=== PATIENT | female | born 1930 | race Caucasian/White ===

== ENCOUNTER 2018-05-18 20:36 | Inpatient (IN) ==
[2018-05-18] MEDS ORDERED: *HR* HYDROcodone/Acet 5/325 mg TABLET PO ONE (20:52)
--- NOTE | 2018-05-18 20:57 | Emergency Department Note ---
Addendum entered and electronically signed by Daniel Coy DO 05/19/18 07:58: . Original Note: Disposition Clinical Impression: Intractable low back pain, Decreased ambulation status Compression fracture of L3 lumbar vertebra Qualifiers: Encounter type: initial encounter Fracture type: closed Qualified Code(s): S32.030A - Wedge compression fracture of third lumbar vertebra, initial encounter for closed fracture Disposition: Admitted As Inpatient Condition: Fair Forms: ED Satisfaction Letter Time of Disposition: 21:45 Back Pain HPI - General Chief Complaint: ED Back Pain/Injury Stated Complaint: Low Back Pain Time Seen by Provider: 05/18/18 20:49 Source: patient, EMS Mode of arrival: EMS Limitations: no limitations Nursing Notes Reviewed: Yes Vital Signs Reviewed: Yes - History of Present Illness HPI Narrative: Patient is an 79-year-old female with past medical history of COPD, chronic low back pain, chronic right-sided sciatica, recent worsening of low back pain and acute lumbar compression fracture found on MRI outpatient today. She states that she has chronic low back pain, chronic intermittent right lower extremity sciatica, osteoporosis. Chronic back pain has been for the past several months. However, about one week ago, she was lifting a heavy pot in place in the stove and felt pain in her lower back. Since then, she has had worsening of her chronic low back pain symptoms and worsening of her intermittent sciatica. Denies any new numbness, tingling, weakness, loss of bowel or bladder control. She presents today via EMS due to worsening low back pain. She states that she was seen today in the ER, was given morphine for pain control and then sent home with tramadol. She states that she requested that she not be sent home with any narcotic medication which is why she was sent home with tramadol. She is been taking that every 12 hours at home and states that is not helping. She also had an outpatient MRI today that showed an acute versus subacute L3 compression fracture with 10% height loss. She states that she lives at home by herself but is still able to walk and ambulate with a walker. Her son lives nearby and has been checking on her. She states that she is still been able to perform activities of daily living. EMS did report the patient was satting in the upper 80s on presentation. She has a history of COPD. She states that she is supposed to be wearing 3 L nasal cannula oxygen at home but was not wearing it upon EMS arrival. Patient is placed on 2 L and her oxygen increased to 95%. She denies any increased shortness breath, cough, sputum production from her baseline with COPD. - Related Data Home Medications Medication Instructions Recorded Confirmed Albuterol Sulfate [Albuterol 2 puff IH Q6H PRN 07/04/16 07/04/16 Inhaler] Furosemide [Lasix] 20 mg PO DAILY 07/04/16 07/04/16 Multivit-Min/Iron/Folic/Lutein 1 each PO DAILY 07/04/16 07/04/16 [Centrum Silver Women Tablet] Omeprazole [PriLOSEC] 20 mg PO DAILY 07/04/16 07/04/16 Verapamil HCl [Verapamil ER] 240 mg PO DAILY 07/04/16 07/04/16 Previous Rx's Medication Instructions Recorded Oxygen 1 each .ROUTE AD #1 each 07/08/16 Tiotropium [Spiriva] 18 mcg IH 0700 #30 capsule 07/08/16 predniSONE [Prednisone] 10 mg PO DAILY #3 tab 07/08/16 Allergies Allergy/AdvReac Type Severity Reaction Status Date / Time Sulfa (Sulfonamide Allergy See Verified 06/21/16 03:42 Antibiotics) Comments "most pain medicines" Allergy See Uncoded 06/21/16 03:42 Comments All systems ED: reviewed and negative except as stated. Constitutional: Denies: fever Cardiovascular: Denies: chest pain Respiratory: Denies: cough, dyspnea Gastrointestinal: Denies: abdominal pain, nausea, vomiting, diarrhea Genitourinary: Denies: urgency, dysuria, frequency, hematuria, discharge Musculoskeletal: Reports: back pain (Chronic low back pain) Neurological: Reports: paresthesias (Chronic right-sided sciatica). Denies: headache, weakness, numbness Past Medical History - Past Medical History Attestation: Yes The following information was validated with the patient. 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 - Social History Smoking Status: Former smoker Smokeless Tobacco Status: No Alcohol use: Reports: none Drug use: Reports: none Physical Exam - General Limitations: no limitations General appearance: alert, in no apparent distress - Head Head exam: atraumatic, normocephalic, normal inspection - Eye Eye exam: Present: normal appearance, PERRL, EOMI - ENT ENT exam: normal exam, normal oropharynx, mucous membranes moist - Neck Neck exam: Present: normal inspection, full ROM, trachea midline - Chest Chest inspection: Present: normal inspection, symmetric chest wall rise - Respiratory Respiratory exam: Present: normal lung sounds bilaterally - Cardiovascular Cardiovascular exam: Present: regular rate, normal rhythm, normal heart sounds - Abdominal Exam Abdominal exam: Present: soft, Non-Tender. Absent: tenderness, distention, guarding, rebound, rigidity - Extremities Exam Extremities exam: Present: normal inspection, full ROM. Absent: tenderness, pedal edema - Back Exam Back exam: Present: vertebral tenderness (L3 point tenderness midline), sciatic notch tenderness (R), straight leg raise (R). Absent: CVA tenderness (R), CVA tenderness (L), sciatic notch tenderness (L), straight leg raise (L) - Neurological Exam Neurological exam: Present: alert, oriented X3. Absent: motor sensory deficit - Expanded Neurological Exam Patient oriented to: Present: person Speech: Present: fluid speech Motor strength - LLE: 5/5 Motor strength - RLE: 5/5 Sensory exam lower extremity: light touch: Normal Coma Scale Eye Opening: Spontaneous Coma Scale Motor Response: Obeys Commands Coma Scale Verbal Response: Oriented Coma Scale Total: 15 - Psychiatric Psychiatric exam: Present: normal affect, normal mood - Skin Skin exam: Present: warm, dry, intact, normal color Course Course Narrative: Patient is requesting only to be given a mild narcotic. She will be given [place] 5 mg here in the ED. We extensively talked about need for admission for pain control and for safety reasons if she is not able to ambulate at home safely because of lumbar pain, living alone, ambulating with walker. She states that she would prefer to go home with her pain is controlled. However, she would be agreeable with staying if pain is not able to be controlled or if she felt unsafe with ambulation when going home after medications. 21:43 patient states that her pain is still an 8 out of 10 if she moves at all, does not feel that she get up out of bed and walk. We discussed admission for decreased ambulation status, intractable lower back pain, L3 compression fracture for further care. She is agreeable with this plan. Hospitalist has been paged. Vital Signs Temperature 97.7 F 05/18/18 20:40 Pulse Rate 86 05/18/18 20:40 Respiratory Rate 18 05/18/18 20:40 Blood Pressure 159/77 05/18/18 20:40 O2 Sat by Pulse Oximetry 93 05/18/18 20:40 Temperature 97.7 F 05/18/18 20:40 Pulse Rate 98 05/18/18 21:35 Respiratory Rate 18 05/18/18 21:35 Blood Pressure 144/103 05/18/18 21:35 O2 Sat by Pulse Oximetry 100 05/18/18 21:35 Oxygen Delivery Oxygen Delivery Nasal Cannula Back Pain/Injury - MDM Narrative Medical decision making narrative: Patient is requesting only to be given a mild narcotic. She will be given [place] 5 mg here in the ED. We extensively talked about need for admission for pain control and for safety reasons if she is not able to ambulate at home safely because of lumbar pain, living alone, ambulating with walker. She states that she would prefer to go home with her pain is controlled. However, she would be agreeable with staying if pain is not able to be controlled or if she felt unsafe with ambulation when going home after medications. 21:43 patient states that her pain is still an 8 out of 10 if she moves at all, does not feel that she get up out of bed and walk. We discussed admission for decreased ambulation status, intractable lower back pain, L3 compression fracture for further care. She is agreeable with this plan. Hospitalist has been paged. - Medical Records Medical records reviewed: Yes I reviewed the patient's medical records. - Radiology Data Radiology results reviewed: Yes I reviewed the patient's radiology results. S.B.A.R. - S.B.A.R. Situation: Demographics, MOA Background: Presenting Complaint, Relevant PMH, Meds, & Allergies Assessment: Vital Signs, Course and respsone to treatment, Exam Concerns, Patient/Family Expectation, Pertinant Lab Results Recommendation: Barrier(s) to disposition, Recommendation based on pending studies, treatments, or consults S.B.A.R. Report Given to: Dr. Gabriel
--- NOTE | 2018-05-18 21:17 | Emergency Department Note ---
Disposition Clinical Impression: Intractable low back pain, Decreased ambulation status Compression fracture of L3 lumbar vertebra Qualifiers: Encounter type: initial encounter Fracture type: closed Qualified Code(s): S32.030A - Wedge compression fracture of third lumbar vertebra, initial encounter for closed fracture Disposition: Admitted As Inpatient Condition: Fair General Adult HPI - General Chief complaint: ED Back Pain/Injury Stated complaint: Low Back Pain Time Seen by Provider: 05/18/18 20:49 Source: patient, EMS Mode of arrival: EMS Limitations: no limitations - History of Present Illness Pain Scale: 9 - Related Data Home Medications Medication Instructions Recorded Confirmed Furosemide [Lasix] 20 mg PO DAILY 07/04/16 05/18/18 Multivit-Min/Iron/Folic/Lutein 1 each PO DAILY 07/04/16 05/18/18 [Centrum Silver Women Tablet] Omeprazole [PriLOSEC] 20 mg PO DAILY 07/04/16 05/18/18 Verapamil HCl [Verapamil ER] 240 mg PO DAILY 07/04/16 05/18/18 Previous Rx's Medication Instructions Recorded Oxygen 1 each .ROUTE AD #1 each 07/08/16 Tiotropium [Spiriva] 18 mcg IH 0700 #30 capsule 07/08/16 predniSONE [Prednisone] 10 mg PO DAILY #3 tab 07/08/16 Allergies Allergy/AdvReac Type Severity Reaction Status Date / Time Sulfa (Sulfonamide Allergy See Verified 06/21/16 03:42 Antibiotics) Comments "most pain medicines" Allergy See Uncoded 06/21/16 03:42 Comments Constitutional: Denies: fever Cardiovascular: Denies: chest pain Respiratory: Denies: cough, dyspnea Gastrointestinal: Denies: abdominal pain, nausea, vomiting, diarrhea Genitourinary: Denies: urgency, dysuria, frequency, hematuria, discharge Musculoskeletal: Reports: back pain (Chronic low back pain) Neurological: Reports: paresthesias (Chronic right-sided sciatica). 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 - Social History Smoking Status: Former smoker Smokeless Tobacco Status: No Alcohol use: Reports: none Drug use: Reports: none Physical Exam - General Limitations: no limitations General appearance: alert, in no apparent distress Course Vital Signs Temperature 97.7 F 05/18/18 20:40 Pulse Rate 86 05/18/18 20:40 Respiratory Rate 18 05/18/18 20:40 Blood Pressure 159/77 05/18/18 20:40 O2 Sat by Pulse Oximetry 93 05/18/18 20:40 Temperature 97.5 F L 05/19/18 03:09 Pulse Rate 66 05/19/18 03:09 Respiratory Rate 17 05/19/18 03:09 Blood Pressure 134/77 05/19/18 03:09 O2 Sat by Pulse Oximetry 95 05/19/18 03:09 Oxygen Delivery Oxygen Delivery Nasal Cannula Medical Decision Making - Lab Data Result diagrams: 05/18/18 22:18 05/18/18 22:18 Attestation Statement - Attestation Attestation: Resident Attestation: I examined this patient and my medical decision making was reviewed with the Resident Physician. I agree with the documented findings, disposition and treatment plan as described except to the extent set forth below. We independently had [id number] contact with the patient Resident Dr. Coy Patient was seen earlier by previous provider for evaluation of back pain. History of sciatica. Outpatient MRI showed possible acute compression fracture. Patient was given pain control in the emergency department which did not significantly improve her pain and she will require admission for further pain management as well as possible consult for kyphoplasty versus bracing versus other. Patient in moderate amount of distress secondary to pain, lower tenderness which is not able to delineate between midline and paraspinal but tenderness is worse to the right. Patient does have pinpoint tenderness over the SI joint. She does have radiation of pain down her leg with positive straight leg raise. Neurovascularly intact the distal extremities. Please see resident note for further details and disposition.
[2018-05-18 22:31] LABS: Basophils % 0.1 %; Eosinophils % 0.3 %; Hemoglobin 13.7 g/dL (11.5-15.4); Immature Granulocytes % 0.7 % (0-4); Lymphocytes # 1.1 K/mcL (0.6-4.6); Lymphocytes % 10.4 %; Mean Corpuscular HGB Conc 33.4 g/dL (31.6-35.5); Mean Corpuscular Hemoglobin 33.7 pg (28.0-33.3); Mean Platelet Volume 9.4 fL (9.4-12.4); Monocytes # 1.3 K/mcL (0.0-1.3); Monocytes % 11.6 %; Neutrophils # 8.4 K/mcL (1.6-8.9); Platelet Count 280 K/mcL (140-400); Red Blood Count 4.06 M/mcL (3.82-4.97); Red Cell Distribution Width 12.5 % (11.5-14.5); Segmented Neutrophils % 76.9 %
[2018-05-18 22:47] LABS: Calcium 9.5 mg/dL (8.6-10.3); Potassium 4.4 mEq/L (3.5-5.1)
[2018-05-19] MEDS ORDERED: Naloxone 0.4 MG/ML INJ IVP PRN (02:43)
[2018-05-19] MEDS ORDERED: Acetaminophen 325 MG TABLET PO PRN (02:43)
[2018-05-19] MEDS ORDERED: NON-FORMULARY MEDICATION 1 EACH EACH (Oxygen [Oxygen] 1 EACH) SCH (03:00)
[2018-05-19] MEDS: 0.9 % Sodium Chloride 1,000 ML IVC SCH ×2 (03:14→16:54)
--- NOTE | 2018-05-19 03:47 | Internal Med History&Physical ---
Date of Encounter: 05/19/18 Time of Encounter: 01:30 Internal Medicine - H&P: HPI Chief complaint: back pain Admitted From: Emergency Dept Plans for Post Hospital Care: Home History of present illness: Ms. Nina is an 87 year old female who presents with severe low back pain, which has been present for the last week. She denies any trauma or injury to her low back. However, she was lifting a heavy object last week when she felt a pop in her back followed by severe excruciating pain. Because of persistent worsening pain, she came to ER today and was seen twice in the ER. She was discharged home with tramadol initially. Unfortunately, this did not relieve her acute her pain and she returned to the ER for worsening pain. She was subsequently admitted to the hospitalist service. She did have an MRI done earlier yesterday which confirmed acute versus subacute L3 compression fracture. Upon my assessment of the patient, she is resting in bed comfortably and sleeping. She is easily arousable. She does complain of significant pain with any movement, however. Because of her intractable pain and inability to care for herself at home, she came to hospital. She is requesting to use minimal narcotic pain medications. However, at times, her pain is intolerable. She has had prior compression fractures treated with kyphoplasty with good results. She is again requesting kyphoplasty. I will consult orthopedics and have them evaluate her. Regarding her COPD, she denies any cough, congestion, difficulty breathing, wheezing, or shortness of breath beyond her baseline. She is on chronic steroids and when necessary oxygen. Past Med Surg Social Fam HX - Past Medical History Attestation: Yes The following information was validated with the patient. Source: patient, old records reviewed Medical history: COPD (steroid and O2 dependent), CVA, hypertension Psychiatric history: no psych history - Past Surgical History Surgical History: cataract Additional surgical history: colon resection, Lt arm surgery - Social History Smoking Status: Former smoker Smokeless Tobacco Status: No Alcohol use: none Drug use: none Current living situation: Home - Independent Activity Level: Independent ambulation Recent Out of Country Travel Within the Last 8 Weeks: No - Family History Mother Adopted: No Family Member Ethnicity: Non- Hx Family Cancer: Yes Father Adopted: No Family Member Ethnicity: Non- Living Status: Hx Family Cancer: Yes Internal Medicine - H&P: Meds Furosemide [Lasix] 20 mg PO DAILY 07/04/16 [History] Multivit-Min/Iron/Folic/Lutein [Centrum Silver Women Tablet] 1 each PO DAILY 07/04/16 [History] Omeprazole [PriLOSEC] 20 mg PO DAILY 07/04/16 [History] Verapamil HCl [Verapamil ER] 240 mg PO DAILY 07/04/16 [History] Oxygen 1 each .ROUTE AD #1 each 07/08/16 [Rx] Tiotropium [Spiriva] 18 mcg IH 0700 #30 capsule 07/08/16 [Rx] predniSONE [Prednisone] 10 mg PO DAILY #3 tab 07/08/16 [Rx] Allergy/AdvReac Type Severity Reaction Status Date / Time Sulfa (Sulfonamide Allergy See Verified 06/21/16 03:42 Antibiotics) Comments "most pain medicines" Allergy See Uncoded 06/21/16 03:42 Comments - Constitutional Constitutional: no chills, no fever(s), no malaise - EENT Eyes: no blurry vision, no change in vision Ears: no ear pain, no tinnitus Nose, mouth and throat: no nasal congestion, no sinus pain, no sore throat - Cardiovascular Cardiovascular ROS IM: no chest pain, no dyspnea, no palpitations, no paroxysmal nocturnal dyspnea - Respiratory Respiratory: cough (chronic), no hemoptysis, no chest congestion, no excessive phlegm production, no change in phlegm color - Gastrointestinal Gastrointestinal: no abdominal pain, no diarrhea, no hematemesis, no hematochezia, no melena, no nausea, no vomiting - Genitourinary Genitourinary: no dysuria, no flank pain, no hematuria - Musculoskeletal Musculoskeletal ROS IM: back pain, no arthralgias, no muscle cramps, no muscle weakness - Integumentary Integumentary IM: no rash, no jaundice - Neurological Neurological ROS: no dizziness, no focal weakness, no frequent falls, no headache(s) - Psychiatric Psychiatric: no anxiety, no depression - Endocrine Endocrine IM: no polydipsia, no polyuria - Allergic/Immunologic Allergic/Immunologic: no wheezing, no GI upset with certain foods - Constitutional Vitals: Temp Pulse Resp BP Pulse Ox 97.5 F L 66 17 134/77 95 05/19/18 03:09 05/19/18 03:09 05/19/18 03:09 05/19/18 03:09 05/19/18 03:09 General appearance: Present: cooperative, mild distress (due to back pain), A&O X 3, pleasant, answers questions appropriately Exam: see below - Head Head exam: Present: atraumatic, normal inspection - Eye Eye exam: Present: EOMI, PERRL. Absent: scleral icterus Pupils: Present: normal accommodation - ENT ENT exam: Present: mucous membranes dry, normal exam, normal oropharynx - Neck Neck exam general surgery: Present: full ROM, supple. Absent: tenderness, nuchal rigidity, thyromegaly - Respiratory Respiratory exam: Present: prolonged expiratory phase, wheezes (occasional). Absent: chest wall tenderness, rales, respiratory distress, rhonchi, tachypnea - Cardiovascular Cardiovascular exam: Present: distant heart sounds, RRR, +S1, +S2. Absent: diastolic murmur, systolic murmur - GI/Abdominal GI/Abdominal exam: Present: normal bowel sounds, soft. Absent: hepatomegaly, mass, splenomegaly, tenderness - Extremities Exam Extremities exam: Present: full ROM, warm, radial pulses palpable and sy mmetrical. Absent: calf tenderness, pedal edema, tenderness - Back Exam Back exam: Present: vertebral tenderness (lumbar region). Absent: CVA tenderness (L), CVA tenderness (R) - Neurological Exam Neurological exam: Present: alert, CN II-XII intact, oriented X3, no focal deficits - Psychiatric Psychiatric exam: Present: normal affect, normal mood - Skin Skin exam: Present: dry, intact, warm Internal Med - H&P Results - Labs CBC & Chem 7: 05/18/18 22:18 05/18/18 22:18 Labs: Short CBC 05/18/18 Range/Units 22:18 WBC 10.9 (4.3-11.1) K/mcL Hgb 13.7 (11.5-15.4) g/dL Hct 41.0 (35.3-44.9) % Plt Count 280 (140-400) K/mcL Neutrophils # 8.4 (1.6-8.9) K/mcL BMP 05/18/18 22:18 Sodium 133 L Potassium 4.4 Chloride 99 Carbon Dioxide 27 BUN 51 H Creatinine 1.84 H Glucose 94 Calcium 9.5 - Diagnostic Studies Other Images Additional comments: MRI Lumbar Spine report reviewed: acute vs subacute L3 compression fracture. - Assessment and plan (1) Compression fracture of L3 lumbar vertebra Current Visit: Yes Status: Acute Assessment and plan: 1. Will treat with mild oral pain meds. If sever pain, she may warrant IV opiate for pain control. 2. Consult orthopedics as she may be candidate for kyphoplasty. 3. PT/OT consults when clinically improved. Qualifiers: Encounter type: initial encounter Fracture type: closed Qualified Code(s): S32.030A - Wedge compression fracture of third lumbar vertebra, initial encounter for closed fracture (2) COPD (chronic obstructive pulmonary disease) Current Visit: Yes Status: Chronic Assessment and plan: 1. No acute process. 2. Continue home meds as appropriate. 3. Patient is steroid dependent and at high risk for furhter compression fractures from osteoporosis. Qualifiers: COPD type: emphysema Emphysema type: panlobular Qualified Code(s): J43.1 - Panlobular emphysema (3) CKD (chronic kidney disease) stage 3, GFR 30-59 ml/min Current Visit: Yes Status: Chronic Assessment and plan: 1. Will hydrate with IVF and monitor renal function. 2. Consult nephrology if necessary if renal function declines. (4) DVT prophylaxis Current Visit: Yes Status: Acute Assessment and plan: 1. Heparin SQ.
[2018-05-19 05:21] LABS: Basophils % 0.2 %; Eosinophils # 0.1 K/mcL (0.0-0.6); Eosinophils % 0.9 %; Hematocrit 47.5 % (35.3-44.9); Immature Granulocytes % 0.7 % (0-4); Lymphocytes # 1.5 K/mcL (0.6-4.6); Mean Corpuscular HGB Conc 33.7 g/dL (31.6-35.5); Mean Corpuscular Hemoglobin 33.5 pg (28.0-33.3); Mean Corpuscular Volume 99.6 fL (83.0-100.0); Mean Platelet Volume 9.5 fL (9.4-12.4); Monocytes # 0.9 K/mcL (0.0-1.3); Monocytes % 10.5 %; Neutrophils # 6.3 K/mcL (1.6-8.9); Platelet Count 284 K/mcL (140-400); Red Blood Count 4.77 M/mcL (3.82-4.97); Red Cell Distribution Width 12.4 % (11.5-14.5); Segmented Neutrophils % 70.7 %
[2018-05-19 05:28] LABS: INR 0.8; Prothrombin Time 9.4 Seconds (9.4-12.1)
[2018-05-19 05:30] LABS: Activated Partial Thrombo Time 22.2 Seconds (26.0-36.0)
[2018-05-19 05:36] LABS: Albumin 3.9 g/dL (3.5-5.7); Albumin/Globulin Ratio 1.6 (1.1-2.2); Bilirubin,Total 0.8 mg/dL (0.3-1.0); Calcium 9.7 mg/dL (8.6-10.3); Globulin 2.5 g/dL (2.4-3.5); Potassium 4.5 mEq/L (3.5-5.1); Total Protein 6.4 g/dL (6.4-8.9)
[2018-05-19] MEDS: *HR* Heparin 5,000 UNIT/ML VIAL SQ SCH ×2 (06:40→18:10)
[2018-05-19] MEDS: *HR* HYDROcodone/Acet 5/325 mg TABLET PO PRN ×2 (06:43→20:06)
--- NOTE | 2018-05-19 06:44 | Orthopedic Consult Note ---
Date of Encounter: 05/19/18 Time of Encounter: 06:42 History of Present Illness HPI: Ms. Nina is a 87 year old female With a history of multiple compression fractures in the past T12 and L1. Patient with a new injury admitted with compression fracture at L3. I reviewed the MRI shows the acute fracture at L3, shows a fractures at T12 and L1. There is no evidence of cord compression. On physical exam the patient has neurologic intact distally. I believe this can be treated nonoperatively, or with kyphoplasty. This will be decision of the treating surgeon Dr. Jo. Past Med Surg Social Fam HX - Past Medical History Medical history: COPD, CVA, hypertension Psychiatric history: no psych history - Past Surgical History Surgical History: cataract Additional surgical history: colon resection, Lt arm surgery - Social History Smoking Status: Former smoker Smokeless Tobacco Status: No Alcohol use: none Drug use: none - Family History Mother Adopted: No Family Member Ethnicity: Non- Hx Family Cancer: Yes Father Adopted: No Family Member Ethnicity: Non- Living Status: Hx Family Cancer: Yes Medications and Allergies Furosemide [Lasix] 20 mg PO DAILY 07/04/16 [History] Multivit-Min/Iron/Folic/Lutein [Centrum Silver Women Tablet] 1 each PO DAILY 07/04/16 [History] Omeprazole [PriLOSEC] 20 mg PO DAILY 07/04/16 [History] Verapamil HCl [Verapamil ER] 240 mg PO DAILY 07/04/16 [History] Oxygen 1 each .ROUTE AD #1 each 07/08/16 [Rx] Tiotropium [Spiriva] 18 mcg IH 0700 #30 capsule 07/08/16 [Rx] predniSONE [Prednisone] 10 mg PO DAILY #3 tab 07/08/16 [Rx] Allergy/AdvReac Type Severity Reaction Status Date / Time Sulfa (Sulfonamide Allergy See Verified 06/21/16 03:42 Antibiotics) Comments "most pain medicines" Allergy See Uncoded 06/21/16 03:42 Comments All Systems Reviewed: The remainder of the systems were reviewed and are negative Physical Exam - Constitutional Vitals: Temp Pulse Resp BP Pulse Ox 97.4 F L 72 16 144/77 99 05/19/18 06:36 05/19/18 06:36 05/19/18 06:36 05/19/18 06:36 05/19/18 06:36 Results - Labs Result Diagrams: 05/19/18 04:54 05/19/18 04:54 Labs: Abnormal lab results Hgb 16.0 g/dL (11.5-15.4) H D 05/19/18 04:54 Hct 47.5 % (35.3-44.9) H 05/19/18 04:54 MCH 33.5 pg (28.0-33.3) H 05/19/18 04:54 APTT 22.2 Seconds (26.0-36.0) L 05/19/18 04:54 Sodium 133 mEq/L (136-145) L 05/19/18 04:54 BUN 49 mg/dL (8-23) H 05/19/18 04:54 Creatinine 1.75 mg/dL (0.60-1.20) H 05/19/18 04:54 Est GFR ( Amer) 33 (> 60) L 05/19/18 04:54 Est GFR (Non-Af Amer) 27 (> 60) L 05/19/18 04:54 BUN/Creatinine Ratio 28 (6-26) H 05/19/18 04:54 H & H 05/18/18 05/19/18 Range/Units 22:18 04:54 Hgb 13.7 16.0 H D (11.5-15.4) g/dL Hct 41.0 47.5 H (35.3-44.9) % All other labs normal. Consult Discharge Plan - Plan Referrals: NONE,PCP [Primary Care Provider] -
[2018-05-19] MEDS: Tiotropium 18 MCG inhalation IH SCH (08:20)
[2018-05-19] MEDS: Verapamil ER (24 HR) 240 MG TABLET.ER PO SCH (08:49)
[2018-05-19] MEDS: Multivit/Ca/Min/Fe/FA 1 TAB TABLET PO SCH (08:49)
[2018-05-19] MEDS: predniSONE 10 MG TABLET PO SCH (08:49)
--- NOTE | 2018-05-19 11:13 | Event Note ---
Date of Encounter: 05/19/18 Time of Encounter: 11:12 Patient is lying in bed. As long as she does not know, her pain is well controlled. Discussed patient's case with Dr. Juarez who is election supervisor for vertebral fractures. He said patient will either be recommended a brace or kyphoplasty based on their evaluation. We will await consultation. Continue supportive care in the meantime. Patient does not have an neuro vascular deficits.
[2018-05-20] MEDS: *HR* HYDROcodone/Acet 5/325 mg TABLET PO PRN ×2 (02:35→08:43)
[2018-05-20] MEDS: *HR* Heparin 5,000 UNIT/ML VIAL SQ SCH ×2 (05:09→17:08)
[2018-05-20 05:27] LABS: Basophils % 0.1 %; Eosinophils # 0.1 K/mcL (0.0-0.6); Eosinophils % 1.2 %; Hematocrit 37.8 % (35.3-44.9); Immature Granulocytes % 0.7 % (0-4); Lymphocytes # 1.3 K/mcL (0.6-4.6); Lymphocytes % 17.5 %; Mean Corpuscular HGB Conc 32.3 g/dL (31.6-35.5); Mean Corpuscular Volume 102.2 fL (83.0-100.0); Mean Platelet Volume 9.6 fL (9.4-12.4); Monocytes # 0.9 K/mcL (0.0-1.3); Monocytes % 11.5 %; Neutrophils # 5.2 K/mcL (1.6-8.9); Platelet Count 297 K/mcL (140-400); Red Cell Distribution Width 12.5 % (11.5-14.5)
[2018-05-20 05:28] LABS: Hemoglobin 12.2 g/dL (11.5-15.4)
[2018-05-20] MEDS: Ringers Solution, Lactated 1,000 ML IVC SCH ×2 (05:33→19:20)
[2018-05-20 05:42] LABS: Calcium 8.6 mg/dL (8.6-10.3)
[2018-05-20] MEDS: Tiotropium 18 MCG inhalation IH SCH (07:32)
[2018-05-20] MEDS: Verapamil ER (24 HR) 240 MG TABLET.ER PO SCH (08:16)
[2018-05-20] MEDS: Multivit/Ca/Min/Fe/FA 1 TAB TABLET PO SCH (08:16)
[2018-05-20] MEDS: Furosemide 20 MG TABLET PO SCH (08:16)
[2018-05-20] MEDS: predniSONE 10 MG TABLET PO SCH (08:16)
[2018-05-20] MEDS ORDERED: OXYCODONE Oral CONC 10 MG/0.5 ML ORAL.SYG SL PRN (09:48)
--- NOTE | 2018-05-20 10:09 | Pain Management Consultation ---
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 All questions were answered. The patient has compression fracture at L3 that appears to be new. I reviewed the MRI demonstrating edema and fracture lines possibly contiguous with the ventral epidural space. The fracture does not appear to be comminuted although axial slicing appears to be incomplete. Old fractures were present as well superior to the new fracture. The patient requires a lumbar CT scan for further evaluation of fracture lines. Pain medication adjustment as discussed with the hospitalist physician. Bracing to be applied in the morning. Occupational therapy to evaluate as well. Qualifiers: Encounter type: initial encounter Qualified Code(s): M80.08XA - Age-related osteoporosis with current pathological fracture, vertebra(e), initial encounter for fracture (2) Acute right hip pain Current Visit: Yes Status: Acute The assessment and plan as outlined above was discussed with the patient and/or family members who expressed understanding and agreement. All questions were answered. To have right hip pain. This appears to be the predominant painful area. Pelvic x-rays were negative for fracture. Clear osteopenia as well as osteoarthritis present. CT the right hip to be performed. History of Present Illness Chief complaint: Back pain right hip pain HPI: Ms. Nina is a 87 year old female The patient was lifting a heavy pot into the oven when she developed low back pain. The patient states the pain began about 2 weeks ago. She had seen orthopedics and was treated as an outpatient. She developed an acute worsening exacerbation last week that waxed and waned and she called the EMS twice. The second time she was brought into the emergency room here on May 18. The patient states the pain was somewhat controlled yesterday but today seems a little worse. The patient has been taking [place] with mild benefit. She states that she is having difficult time even "scratching her head." This leads to pain. The pain is focused into the right hip area but somewhat into the back. The pain does not radiate down the leg. She does not complain of any incontinence. She does not complain of any new weakness in the lower extremities. She is documenting of any side effects from the medication. She is not completion of any fevers, chills or malaise. Past Med Surg Social Fam HX - Past Medical History Medical history: COPD, CVA, hypertension Psychiatric history: no psych history - Past Surgical History Surgical History: cataract Additional surgical history: colon resection, Lt arm surgery - Social History Smoking Status: Former smoker Smokeless Tobacco Status: No Alcohol use: none Drug use: none - Family History Mother Adopted: No Family Member Ethnicity: Non- Hx Family Cancer: Yes Father Adopted: No Family Member Ethnicity: Non- Living Status: Hx Family Cancer: Yes Medications and Allergies Furosemide [Lasix] 20 mg PO DAILY 07/04/16 [History] Multivit-Min/Iron/Folic/Lutein [Centrum Silver Women Tablet] 1 each PO DAILY 07/04/16 [History] Omeprazole [PriLOSEC] 20 mg PO DAILY 07/04/16 [History] Verapamil HCl [Verapamil ER] 240 mg PO DAILY 07/04/16 [History] Oxygen 1 each .ROUTE AD #1 each 07/08/16 [Rx] Tiotropium [Spiriva] 18 mcg IH 0700 #30 capsule 07/08/16 [Rx] predniSONE [Prednisone] 10 mg PO DAILY #3 tab 07/08/16 [Rx] Allergy/AdvReac Type Severity Reaction Status Date / Time Sulfa (Sulfonamide Allergy See Verified 06/21/16 03:42 Antibiotics) Comments "most pain medicines" Allergy See Uncoded 06/21/16 03:42 Comments Review of Systems - Constitutional Constitutional ROS IM: no photophobia, no phonophobia, no daytime sleepiness, no fever(s), no stops breathing during sleep - Cardiovascular Cardiovascular ROS: no chest pain, no leg edema, no lightheadedness - Respiratory Respiratory: no pain on inspiration, no pain with cough - Gastrointestinal Gastrointestinal: no abdominal pain, no constipation, no diarrhea, no heartburn - Musculoskeletal Musculoskeletal ROS: as per HPI right: hip pain (major pain) - Integumentary Integumentary: as per HPI - Neurological Neurological ROS: as per HPI - Psychiatric Psychiatric general: no anxiety, no confusion, no depression - Hematologic/Lymphatic Hematologic/Lymphatic pediatric: no easy bleeding, no easy bruising Physical Exam Initial Vital Signs Temp Pulse Resp BP Pulse Ox 97.7 F 86 18 159/77 93 05/18/18 20:40 05/18/18 20:40 05/18/18 20:40 05/18/18 20:40 05/18/18 20:40 - General physical appearance General physical appearance: awake & oriented, no distress, moderate pain - Respiratory normal respiratory effort - Integumentary Integumentary general surgery: other (mild eccymosis) - Neurologic other (Grossly afocal. Pain with right sided SLR test. Exam limited d/t pain) - Musculoskeletal Musculoskeletal: kyphosis, scoliosis, point tenderness over spinal process (Mod pain over L3. Pain with right hip movement. ) - Psychiatric Psychiatric: oriented to place, speech is normal, memory intact Results - Labs 05/20/18 04:50 05/20/18 04:50 Abnormal lab results RBC 3.70 M/mcL (3.82-4.97) L 05/20/18 04:50 MCV 102.2 fL (83.0-100.0) H 05/20/18 04:50 APTT 22.2 Seconds (26.0-36.0) L 05/19/18 04:54 BUN 52 mg/dL (8-23) H 05/20/18 04:50 Creatinine 1.60 mg/dL (0.60-1.20) H 05/20/18 04:50 Est GFR ( Amer) 37 (> 60) L 05/20/18 04:50 Est GFR (Non-Af Amer) 30 (> 60) L 05/20/18 04:50 BUN/Creatinine Ratio 33 (6-26) H 05/20/18 04:50 Diabetes panel 05/20/18 Range/Units 04:50 Sodium 136 (136-145) mEq/L Potassium 4.0 (3.5-5.1) mEq/L Chloride 106 (98-107) mEq/L Carbon Dioxide 26 (23-29) mEq/L BUN 52 H (8-23) mg/dL Creatinine 1.60 H (0.60-1.20) mg/dL Glucose 89 (70-105) mg/dL Calcium 8.6 (8.6-10.3) mg/dL Calcium panel 05/20/18 Range/Units 04:50 Calcium 8.6 (8.6-10.3) mg/dL Pituitary panel 05/20/18 Range/Units 04:50 Sodium 136 (136-145) mEq/L Potassium 4.0 (3.5-5.1) mEq/L Chloride 106 (98-107) mEq/L Carbon Dioxide 26 (23-29) mEq/L BUN 52 H (8-23) mg/dL Creatinine 1.60 H (0.60-1.20) mg/dL Glucose 89 (70-105) mg/dL Calcium 8.6 (8.6-10.3) mg/dL Adrenal panel 05/20/18 Range/Units 04:50 Sodium 136 (136-145) mEq/L Potassium 4.0 (3.5-5.1) mEq/L Chloride 106 (98-107) mEq/L Carbon Dioxide 26 (23-29) mEq/L BUN 52 H (8-23) mg/dL Creatinine 1.60 H (0.60-1.20) mg/dL Glucose 89 (70-105) mg/dL Calcium 8.6 (8.6-10.3) mg/dL All other labs normal. Consult Discharge Plan - Plan Referrals: NONE,PCP [Primary Care Provider] -
[2018-05-20] MEDS: Acetaminophen IV 1,000 MG/100 ML INFUS..BTL IVPB SCH ×3 (11:27→23:59)
--- NOTE | 2018-05-20 13:39 | Internal Med Progress Note ---
Hospitalist Progress Note - Encounter Date of Encounter: 05/20/18 Time of Encounter: 13:36 - Subjective Interval History: I evaluated patient earlier today along with the nurse and Dr. Juarez. Patient reports worsening pain in her back and right hip. The pain has been going on in her right hip for about a week now. After he completed my interview , the nurse page me stating that the patient was reporting she had left-sided facial droop and her tongue deviating to the left - Exam Vitals: Temp Pulse Resp BP Pulse Ox 97.9 F 66 21 159/65 87 05/20/18 10:56 05/20/18 10:56 05/20/18 10:56 05/20/18 10:56 05/20/18 10:56 Exam: General: Patient is alert, no acute distress, oriented x 3 Respiratory: Good respiratory effort. Prolonged expiratory phase. Cardiovascular: Regular rate and rhythm. s1 and s2 normal No clicks, rubs, gallops, or murmurs. Abdomen: Abdomen is soft, nontender. Bowel sounds are present Musculoskeletal: Spontaneously moving all extremities, right hip pain Skin: warm, dry, intact. Neuro: Alert oriented x 3, speech deficits, the patient reports left facial droop which was not apparent on my examination - Assessment and Plan (1) Compression fracture of L3 lumbar vertebra Current Visit: Yes Status: Acute Assessment and Plan: Discussed with Dr. Juarez. Plan for CT scan of the spine. PTOT. Pain control. Monitor vital signs closely. Patient will be on narcotic medications for pain control. We will also add IV Tylenol. (2) CKD (chronic kidney disease) stage 3, GFR 30-59 ml/min Current Visit: Yes Status: Chronic Assessment and Plan: Creatinine improving. Patient does continue to have decreased urine output. W ill restart Lasix. Monitor urine output closely. (3) COPD (chronic obstructive pulmonary disease) Current Visit: Yes Status: Chronic Assessment and Plan: Continue bronchodilators as needed. (4) DVT prophylaxis Current Visit: Yes Status: Acute Assessment and Plan: Subcutaneous heparin - Time Spent with Patient Total time spent is greater than 50% in coordination of care (as documented) at patient's floor/unit and/or counseling patient: Internal Medicine: Result - Labs CBC & Chem 7: 05/20/18 04:50 05/20/18 04:50 Labs: Short CBC 05/20/18 Range/Units 04:50 WBC 7.5 (4.3-11.1) K/mcL Hgb 12.2 D (11.5-15.4) g/dL Hct 37.8 (35.3-44.9) % Plt Count 297 (140-400) K/mcL Neutrophils # 5.2 (1.6-8.9) K/mcL BMP 05/20/18 04:50 Sodium 136 Potassium 4.0 Chloride 106 Carbon Dioxide 26 BUN 52 H Creatinine 1.60 H Glucose 89 Calcium 8.6 - ABG Interpretation ABG results: PT/INR, D-dimer PT 9.4 Seconds (9.4-12.1) 05/19/18 04:54 - Impressions Impressions Hip CT 05/20/18 10:08 IMPRESSION: 1. No acute osseous abnormality. 2. Mild degenerative changes as above. D/ / Gelacio Cheema MD / Gelacio Cheema MD Interpreting Provider: Gelacio Cheema MD Lumbar Spine CT 05/20/18 10:17 IMPRESSION: Unchanged acute L3 compression fracture. D/ / 05/20/2018 13:26:49 Radames Glass MD / [facility] Interpreting Provider: Radames Glass MD Head CT 05/20/18 10:51 IMPRESSION: No acute intracranial abnormality. Chronic small vessel disease. D/ / Maximiliano Bagley MD / Maximiliano Bagley MD Interpreting Provider: Maximiliano Bagley MD Consult Discharge Plan - Plan Referrals: NONE,PCP [Primary Care Provider] - (1) Compression fracture of L3 lumbar vertebra Qualifiers: Encounter type: initial encounter Fracture type: closed Qualified Code(s): S32.030A - Wedge compression fracture of third lumbar vertebra, initial encounter for closed fracture (3) COPD (chronic obstructive pulmonary disease) Qualifiers: COPD type: emphysema Emphysema type: panlobular Qualified Code(s): J43.1 - Panlobular emphysema
[2018-05-20] MEDS ORDERED: hydrALAZINE 10 MG TABLET PO PRN (18:29)
[2018-05-21 02:59] LABS: Basophils % 0.3 %; Eosinophils # 0.1 K/mcL (0.0-0.6); Eosinophils % 0.9 %; Hematocrit 37.1 % (35.3-44.9); Hemoglobin 12.7 g/dL (11.5-15.4); Immature Granulocytes % 0.9 % (0-4); Lymphocytes % 12.6 %; Mean Corpuscular HGB Conc 34.2 g/dL (31.6-35.5); Mean Corpuscular Hemoglobin 34.2 pg (28.0-33.3); Mean Platelet Volume 9.5 fL (9.4-12.4); Monocytes # 0.8 K/mcL (0.0-1.3); Monocytes % 10.6 %; Neutrophils # 5.9 K/mcL (1.6-8.9); Platelet Count 305 K/mcL (140-400); Red Blood Count 3.71 M/mcL (3.82-4.97); Red Cell Distribution Width 12.5 % (11.5-14.5); Segmented Neutrophils % 74.7 %
[2018-05-21 03:17] LABS: Calcium 8.5 mg/dL (8.6-10.3); Potassium 3.7 mEq/L (3.5-5.1)
[2018-05-21] MEDS: Acetaminophen IV 1,000 MG/100 ML INFUS..BTL IVPB SCH (05:49)
[2018-05-21] MEDS: *HR* Heparin 5,000 UNIT/ML VIAL SQ SCH ×2 (05:49→17:18)
[2018-05-21] MEDS: Multivit/Ca/Min/Fe/FA 1 TAB TABLET PO SCH (07:39)
[2018-05-21] MEDS: Verapamil ER (24 HR) 240 MG TABLET.ER PO SCH (07:39)
[2018-05-21] MEDS: predniSONE 10 MG TABLET PO SCH (07:39)
[2018-05-21] MEDS: Furosemide 20 MG TABLET PO SCH (07:39)
[2018-05-21] MEDS: Tiotropium 18 MCG inhalation IH SCH (07:52)
--- NOTE | 2018-05-21 10:45 | Internal Med Progress Note ---
Hospitalist Progress Note - Encounter Date of Encounter: 05/21/18 Time of Encounter: 10:42 - Subjective Interval History: Patient complains of continued right hip pain and back pain. Better controlled compared to yesterday. Still concerned about ambulation with the pain. Denies any fevers or chills. Prefers conservative management to surgery but does want her pain to be better controlled. - Exam Vitals: Temp Pulse Resp BP Pulse Ox 97.7 F 68 18 177/76 96 05/21/18 07:35 05/21/18 07:35 05/21/18 07:53 05/21/18 07:35 05/21/18 07:53 Exam: General: Patient is alert, no acute distress, oriented x 3 Respiratory: Good respiratory effort. Normal breath sounds. No wheezing or crackles. Cardiovascular: Regular rate and rhythm. s1 and s2 normal systolic murmur No pedal edema Abdomen: Abdomen is soft, nontender. Bowel sounds are present Musculoskeletal: Spontaneously moving all extremities , tenderness over right hip Skin: warm, dry, intact. Neuro: Alert oriented x 3 normal cranial nerves, no focal deficits - Assessment and Plan (1) Compression fracture of L3 lumbar vertebra Current Visit: Yes Status: Acute Assessment and Plan: Pain management following. Plan for TLSO brace placement and then ambulation after pain pain meds. Possible kyphoplasty if pain still not controlled well. (2) CKD (chronic kidney disease) stage 3, GFR 30-59 ml/min Current Visit: Yes Status: Chronic Assessment and Plan: Renal function improved. At baseline currently. (3) COPD (chronic obstructive pulmonary disease) Current Visit: Yes Status: Chronic Assessment and Plan: Continue bronchodilators as needed. (4) DVT prophylaxis Current Visit: Yes Status: Acute Assessment and Plan: With subcutaneous heparin (5) Essential hypertension Current Visit: Yes Status: Acute Assessment and Plan: Blood pressure uncontrolled. Will resume Cozaar as renal function has improved. Continue hydralazine as needed for systolic blood pressure greater than 160. DVT Prophylaxis: On Sq heparin - Time Spent with Patient Total time spent is greater than 50% in coordination of care (as documented) at patient's floor/unit and/or counseling patient: Internal Medicine: Result - Labs CBC & Chem 7: 05/21/18 02:35 05/21/18 02:35 Labs: Short CBC 10/22/18 Range/Units 02:35 WBC 7.9 (4.3-11.1) K/mcL Hgb 12.7 (11.5-15.4) g/dL Hct 37.1 (35.3-44.9) % Plt Count 305 (140-400) K/mcL Neutrophils # 5.9 (1.6-8.9) K/mcL BMP 05/21/18 02:35 Sodium 137 Potassium 3.7 Chloride 106 Carbon Dioxide 23 BUN 40 H Creatinine 1.34 H Glucose 89 Calcium 8.5 L - ABG Interpretation ABG results: PT/INR, D-dimer PT 9.4 Seconds (9.4-12.1) 05/19/18 04:54 - Impressions Impressions Hip CT 05/20/18 10:08 IMPRESSION: 1. No acute osseous abnormality. 2. Mild degenerative changes as above. D/ / Gelacio Cheema MD / Gelacio Cheema MD Interpreting Provider: Gelacio Cheema MD Lumbar Spine CT 05/20/18 10:17 IMPRESSION: Unchanged acute L3 compression fracture. D/ / 05/20/2018 13:26:49 Radames Glass MD / [facility] Interpreting Provider: Radames Glass MD Head CT 05/20/18 10:51 IMPRESSION: No acute intracranial abnormality. Chronic small vessel disease. D/ / Maximiliano Bagley MD / Maximiliano Bagley MD Interpreting Provider: Maximiliano Bagley MD Consult Discharge Plan - Plan Referrals: NONE,PCP [Primary Care Provider] - (1) Compression fracture of L3 lumbar vertebra Qualifiers: Encounter type: initial encounter Fracture type: closed Qualified Code(s): S32.030A - Wedge compression fracture of third lumbar vertebra, initial encounter for closed fracture (3) COPD (chronic obstructive pulmonary disease) Qualifiers: COPD type: emphysema Emphysema type: panlobular Qualified Code(s): J43.1 - Panlobular emphysema
--- NOTE | 2018-05-21 12:14 | Pain Management Progress Note ---
Date of Encounter: 05/21/18 Time of Encounter: 09:45 - Assessment and Plan (1) Age-related osteoporosis with current pathological fracture of vertebra Current Visit: Yes Status: Acute Patient seems to be stable. Responded well to IV acetaminophen as well as oral oxycodone. We will convert to Percocet formulation with oxycodone and Tylenol together. We will discontinue the IV acetaminophen for now. The patient tolerated occupational therapy and we will start physical therapy today. TLSO brace pending. Possibly candidate for L3 kyphoplasty but long discussion with the patient and I this morning and we agreed to hold off for now to see how she tolerates bedside PT. Discussed care with the nurse as well. Qualifiers: Encounter type: subsequent encounter Fracture healing: with routine healing Qualified Code(s): M80.08XD - Age-related osteoporosis with current pathological fracture, vertebra(e), subsequent encounter for fracture with routine healing (2) Acute right hip pain Current Visit: Yes Status: Acute Appears to be a secondary issue. Differential diagnosis includes radicular pain versus intrinsic hip pain. CT did not show fracture. CT was not contrast enhanced and therefore unreliable for any soft tissue diagnoses right now. Subjective Patient reports: no new complaints (Patient seems to be progressing slowly. Unclear as to the maintenance of ADLs without assistance. No clear worsening symptoms. Still feels the need to stand bed.), feels better Objective Vital Signs - Last 8 Hours Temp Pulse Resp BP Pulse Ox 05/21/18 11:17 97.3 F L 66 18 131/69 93 05/21/18 07:53 18 96 05/21/18 07:35 97.7 F 68 18 177/76 96 Intake and Output 05/20/18 05/21/18 05/21/18 23:59 07:59 15:59 Intake Total 1340 / 1340 200 / 200 120 / 120 Output Total 400 / 400 0 / 0 Balance 940 / 940 200 / 200 120 / 120 Intake: IV Fluids 1100 / 1100 200 / 200 Lactated Ringers 1,000 ML @ 75 1000 / 1000 mls/hr IVC .[id number] SEEMA Rx#: [id number] Ofirmev 1,000 mg/100 ml 1,000 100 / 100 200 / 200 mg In 100 ml @ 400 mls/hr IVPB Q6HR SEEMA Rx#:[id number] Oral 240 / 240 0 / 0 120 / 120 Output: Urine 400 / 400 0 / 0 Other: Meal Dinner Breakfast Percent of Meal Consumed 75% 5% # Voids 1 Weight 61.82 kg Patient Weight 05/21/18 23:59 Weight 61.82 kg - General physical appearance well developed, well nourished, moderate pain - Eyes normal ocular movement - Respiratory normal respiratory effort - Cardiovascular Cardiovascular exam: Present: RRR - Neurologic normal coordination, normal sensation, other (Oriented to person place and time) - Musculoskeletal other (Kyphosis present. Tenderness over L3 and L4. No gross deformity) - Labs 05/21/18 02:35 05/21/18 02:35 Diabetes panel 05/21/18 Range/Units 02:35 Sodium 137 (136-145) mEq/L Potassium 3.7 (3.5-5.1) mEq/L Chloride 106 (98-107) mEq/L Carbon Dioxide 23 (23-29) mEq/L BUN 40 H (8-23) mg/dL Creatinine 1.34 H (0.60-1.20) mg/dL Glucose 89 (70-105) mg/dL Calcium 8.5 L (8.6-10.3) mg/dL Calcium panel 05/21/18 Range/Units 02:35 Calcium 8.5 L (8.6-10.3) mg/dL Pituitary panel 05/21/18 Range/Units 02:35 Sodium 137 (136-145) mEq/L Potassium 3.7 (3.5-5.1) mEq/L Chloride 106 (98-107) mEq/L Carbon Dioxide 23 (23-29) mEq/L BUN 40 H (8-23) mg/dL Creatinine 1.34 H (0.60-1.20) mg/dL Glucose 89 (70-105) mg/dL Calcium 8.5 L (8.6-10.3) mg/dL Adrenal panel 05/21/18 Range/Units 02:35 Sodium 137 (136-145) mEq/L Potassium 3.7 (3.5-5.1) mEq/L Chloride 106 (98-107) mEq/L Carbon Dioxide 23 (23-29) mEq/L BUN 40 H (8-23) mg/dL Creatinine 1.34 H (0.60-1.20) mg/dL Glucose 89 (70-105) mg/dL Calcium 8.5 L (8.6-10.3) mg/dL - Imaging Additional Studies: Patient's CT scan was reviewed showing 25% inferior endplate fracture at L3. No apparent fracture lines. CT the right hip was significant solely for arthritis. Consult Discharge Plan - Plan Referrals: NONE,PCP [Primary Care Provider] -
[2018-05-21] MEDS: Ringers Solution, Lactated 1,000 ML IVC SCH (22:51)
[2018-05-22] MEDS: *HR* HYDROcodone/Acet 5/325 mg TABLET PO PRN ×2 (00:34→18:38)
[2018-05-22 05:07] LABS: Calcium 8.8 mg/dL (8.6-10.3); Potassium 3.8 mEq/L (3.5-5.1)
[2018-05-22] MEDS: *HR* Heparin 5,000 UNIT/ML VIAL SQ SCH ×2 (06:02→17:21)
--- NOTE | 2018-05-22 07:46 | Pain Management Progress Note ---
Date of Encounter: 05/22/18 Time of Encounter: 07:46 - Assessment and Plan (1) Age-related osteoporosis with current pathological fracture of vertebra Current Visit: Yes Status: Acute Current care plan seems to be reasonable. Patient tolerating oral Percocet. Not using as much as ordered. Tolerating physical therapy. I agree with placement rather than to move forward with kyphoplasty given the patient is progressing on her own without surgical intervention. I will see her back 1 week from discharge to see how she is doing. We will follow her along with her as an outpatient. Qualifiers: Encounter type: subsequent encounter Fracture healing: with routine healing Qualified Code(s): M80.08XD - Age-related osteoporosis with current pathological fracture, vertebra(e), subsequent encounter for fracture with routine healing (2) Acute right hip pain Current Visit: Yes Status: Resolved Appears to be a secondary issue. Differential diagnosis includes radicular pain versus intrinsic hip pain. CT did not show fracture. CT was not contrast enhanced and therefore unreliable for any soft tissue diagnoses right now. Subjective Patient reports: no new complaints, feels better, still having pain, pain is less, other (Patient seems to be tolerating the pain medication as well as increased activity.) Objective Vital Signs - Last 8 Hours Temp Pulse Resp BP Pulse Ox 05/22/18 06:39 97.4 F L 84 18 176/75 93 05/22/18 04:44 97.4 F L 115 16 159/80 94 05/22/18 01:14 159/72 Intake and Output 05/21/18 05/21/18 05/22/18 15:59 23:59 07:59 Intake Total 671 / 671 689 / 689 Balance 671 / 671 689 / 689 Intake: IV Fluids 311 / 311 689 / 689 Lactated Ringers 1,000 ML @ 75 311 / 311 689 / 689 mls/hr IVC .[id number] [facility] Rx#: [id number] Oral 360 / 360 Other: Meal Lunch Percent of Meal Consumed 100% # Voids 1 1 # Bowel Movements 1 - General physical appearance no distress - Eyes normal ocular movement - Respiratory normal respiratory effort - Neurologic normal coordination - Musculoskeletal normal posture - Psychiatric oriented to time, oriented to person, oriented to place - Labs 05/21/18 02:35 05/22/18 03:53 Diabetes panel 05/22/18 Range/Units 03:53 Sodium 139 (136-145) mEq/L Potassium 3.8 (3.5-5.1) mEq/L Chloride 106 (98-107) mEq/L Carbon Dioxide 23 (23-29) mEq/L BUN 42 H (8-23) mg/dL Creatinine 1.46 H (0.60-1.20) mg/dL Glucose 79 (70-105) mg/dL Calcium 8.8 (8.6-10.3) mg/dL Calcium panel 05/22/18 Range/Units 03:53 Calcium 8.8 (8.6-10.3) mg/dL Pituitary panel 05/22/18 Range/Units 03:53 Sodium 139 (136-145) mEq/L Potassium 3.8 (3.5-5.1) mEq/L Chloride 106 (98-107) mEq/L Carbon Dioxide 23 (23-29) mEq/L BUN 42 H (8-23) mg/dL Creatinine 1.46 H (0.60-1.20) mg/dL Glucose 79 (70-105) mg/dL Calcium 8.8 (8.6-10.3) mg/dL Adrenal panel 05/22/18 Range/Units 03:53 Sodium 139 (136-145) mEq/L Potassium 3.8 (3.5-5.1) mEq/L Chloride 106 (98-107) mEq/L Carbon Dioxide 23 (23-29) mEq/L BUN 42 H (8-23) mg/dL Creatinine 1.46 H (0.60-1.20) mg/dL Glucose 79 (70-105) mg/dL Calcium 8.8 (8.6-10.3) mg/dL Consult Discharge Plan - Plan Instructions: Losartan (By mouth) Referrals: NONE,PCP [Primary Care Provider] -
[2018-05-22] MEDS: Verapamil ER (24 HR) 240 MG TABLET.ER PO SCH (07:57)
[2018-05-22] MEDS: Multivit/Ca/Min/Fe/FA 1 TAB TABLET PO SCH (07:57)
[2018-05-22] MEDS: Tiotropium 18 MCG inhalation IH SCH (07:57)
[2018-05-22] MEDS: Furosemide 20 MG TABLET PO SCH (07:58)
[2018-05-22] MEDS: Ringers Solution, Lactated 1,000 ML IVC SCH (17:19)
--- NOTE | 2018-05-22 18:05 | Discharge Summary ---
- NOTES TO OUTPATIENT PROVIDER Notes to Outpatient Provider: Patient to follow-up with orthopedics as an outpatient Date of Encounter: 05/22/18 Time of Encounter: 11:00 - Discharge Diagnosis (1) CKD (chronic kidney disease) stage 3, GFR 30-59 ml/min Priority: Secondary Status: Chronic (2) Compression fracture of L3 lumbar vertebra Priority: Primary Status: Acute Qualifiers: Encounter type: initial encounter Fracture type: closed Qualified Code(s): S32.030A - Wedge compression fracture of third lumbar vertebra, initial encounter for closed fracture (3) COPD (chronic obstructive pulmonary disease) Priority: Secondary Status: Chronic Qualifiers: COPD type: emphysema Emphysema type: panlobular Qualified Code(s): J43.1 - Panlobular emphysema (4) Essential hypertension Priority: Secondary Status: Acute Hospital course: Patient is an 87-year-old female with past medical history significant for COPD, CVA and hypertension who presents to the ER on 05/20/18 due to low back pain. MRI done earlier yesterday which confirmed acute versus subacute L3 compression fracture. She was seen by orthostatics /pain specialist with recommendation for conservative medical management. Patients symptoms have improved and will be discharged [facility] for continued strengthening and conditioning. - Time Spent with Patient Total time spent providing and/or coordinating discharge services: Less than 30 minutes - Discharge Medications Prescriptions: HYDROcodone/Acet 5/325 mg [[place] 5-325 mg] 1 tab PO Q6HR PRN 3 Days #12 tablet PRN Reason: Moderate Pain Home Medications: Furosemide [Lasix] 20 mg PO DAILY 05/20/18 [History] Losartan [Cozaar] 25 mg PO DAILY 05/20/18 [History] Multivit-Min/FA/Lycopen/Lutein [Centrum Silver Tablet] 1 tab PO DAILY 05/20/18 [History] Omeprazole [PriLOSEC] 20 mg PO DAILY PRN 05/20/18 [History] Tiotropium [Spiriva] 18 mcg IH 0700 05/20/18 [History] Verapamil ER (24 HR) [[place] SR] 120 mg PO DAILY 05/20/18 [History] Carvedilol [Coreg] 3.125 mg PO BIDWM tablet 05/22/18 [Rx] HYDROcodone/Acet 5/325 mg [[place] 5-325 mg] 1 tab PO Q6HR PRN 3 Days #12 tablet 05/22/18 [Rx] Allergies/Adverse Reactions: Allergy/AdvReac Type Severity Reaction Status Date / Time Sulfa (Sulfonamide Allergy See Verified 06/21/16 03:42 Antibiotics) Comments "most pain medicines" Allergy See Uncoded 06/21/16 03:42 Comments Date of admission: 05/20/18 08:18 Primary care physician: PCP NONE Consults: 05/19/18 02:45 Consult to Interior Decorator [CONS] Routine Reason for SW Consult: D/C planning; may need HH w PT/OT 05/19/18 09:22 Consult to Surgery [CONS] Routine Consulting Provider: Rajeev Juarez Reason for Consult: L3 Compression fracture Time Notified: 09:23 Call Completed: Yes 05/20/18 10:17 Consult to Occupational Therapy [CONS] Routine Comment: Evaluate, develop and implement POC Reason for Consult: eval and treat Does patient have active BEDREST order?: No Is patient medically & hemodynamically stable?: Yes Patient assessed for mobility or mobilized this visit?: No 05/21/18 11:40 Consult to Physical Therapy [CONS] Routine Comment: Evaluate, develop and implement POC Reason for Consult: EVAL AND TREAT Does patient have active BEDREST order?: No Is patient medically & hemodynamically stable?: Yes - Constitutional Vitals: Temp Pulse Resp BP Pulse Ox 97.6 F 60 18 150/69 93 05/22/18 15:21 05/22/18 15:21 05/22/18 15:21 05/22/18 15:21 05/22/18 15:21 General appearance: Present: cooperative, mild distress (due to back pain), A&O X 3, pleasant, answers questions appropriately Exam: Gen.: Nonacute distress, alert and oriented 3 ENT: Mucosal membranes moist Respiratory: Lungs are clear to auscultation bilaterally without any wheezing rhonchi or rales Cardiovascular: Normal S1 and S2 regular rate rhythm no murmurs rubs or gallops Abdomen: Soft, nontender and nondistended with positive bowel sounds Extremities: No lower extremity edema Skin: Normal color - Patient Status Disposition: Transfer SNF Condition: Fair - Discharge Instructions Instructions: Losartan (By mouth) Follow Up With: NONE,PCP [Primary Care Provider] -
[2018-05-22] MEDS: *HR* OxyCODONE/APAP 5/325 TABLET PO PRN (23:07)
[2018-05-23] MEDS: *HR* Heparin 5,000 UNIT/ML VIAL SQ SCH (05:49)
--- NOTE | 2018-05-23 07:32 | Physician Discharge Referral ---
[facility] Referral Info Institutional Level of Care: Skilled - Diagnosis (1) CKD (chronic kidney disease) stage 3, GFR 30-59 ml/min Status: Chronic (2) Compression fracture of L3 lumbar vertebra Status: Acute (3) COPD (chronic obstructive pulmonary disease) Status: Chronic (4) Essential hypertension Status: Acute - Transfer Medications Prescriptions: HYDROcodone/Acet 5/325 mg [[place] 5-325 mg] 1 tab PO Q6HR PRN 3 Days #12 tablet PRN Reason: Moderate Pain Home Medications: Furosemide [Lasix] 20 mg PO DAILY 05/20/18 [History] Losartan [Cozaar] 25 mg PO DAILY 05/20/18 [History] Multivit-Min/FA/Lycopen/Lutein [Centrum Silver Tablet] 1 tab PO DAILY 05/20/18 [History] Omeprazole [PriLOSEC] 20 mg PO DAILY PRN 05/20/18 [History] Tiotropium [Spiriva] 18 mcg IH 0700 05/20/18 [History] Verapamil ER (24 HR) [[place] SR] 120 mg PO DAILY 05/20/18 [History] Carvedilol [Coreg] 3.125 mg PO BIDWM tablet 05/22/18 [Rx] HYDROcodone/Acet 5/325 mg [[place] 5-325 mg] 1 tab PO Q6HR PRN 3 Days #12 tablet 05/22/18 [Rx] Allergies/Adverse Reactions: Allergy/AdvReac Type Severity Reaction Status Date / Time Sulfa (Sulfonamide Allergy See Verified 06/21/16 03:42 Antibiotics) Comments "most pain medicines" Allergy See Uncoded 06/21/16 03:42 Comments - Respiratory Orders Smoking Cessation: Smoking cessation has been advised. For more information, call the [place] Tobacco Quit Line at 7-306-DFOZ-NOW. CERTIFICATION: I certify that the transfer of the above named patient to an Extended Care Facility is necessary for the continuing treatment of the diagnosis listed. The above information is true and accurate reflection of patient's current condition. Confidential - Redisclosure prohibited without a patient's written consent.
[2018-05-23] MEDS: Furosemide 20 MG TABLET PO SCH (08:19)
[2018-05-23] MEDS: *HR* OxyCODONE/APAP 5/325 TABLET PO PRN (08:19)
[2018-05-23] MEDS: Multivit/Ca/Min/Fe/FA 1 TAB TABLET PO SCH (08:20)
[2018-05-23] MEDS: Verapamil ER (24 HR) 240 MG TABLET.ER PO SCH (08:20)
[2018-05-23] MEDS: Tiotropium 18 MCG inhalation IH SCH (08:42)
[2018-05-23 10:49] VITALS: BP 126/67
--- NOTE | 2018-05-23 18:42 | Internal Med Progress Note ---
Hospitalist Progress Note - Encounter Date of Encounter: 05/23/18 Time of Encounter: 11:00 - Subjective Interval History: Patient's bed now available at [facility] to be discharged today. - Exam Vitals: Temp Pulse Resp BP Pulse Ox 97.7 F 83 16 126/67 94 05/23/18 10:11 05/23/18 10:11 05/23/18 10:11 05/23/18 10:11 05/23/18 10:11 Exam: Gen.: Nonacute distress, alert and oriented 3 - Assessment and Plan (1) Compression fracture of L3 lumbar vertebra Status: Acute Assessment and Plan: Patient's bed now available so will be discharged to [facility] today - Time Spent with Patient Total time spent is greater than 50% in coordination of care (as documented) at patient's floor/unit and/or counseling patient: Internal Medicine: Result - Labs CBC & Chem 7: 05/21/18 02:35 05/22/18 03:53 - ABG Interpretation ABG results: PT/INR, D-dimer PT 9.4 Seconds (9.4-12.1) 05/19/18 04:54 Consult Discharge Plan - Plan Instructions: Losartan (By mouth) Referrals: Rajeev Juarez DO [Partnered Physician] - 05/29/18 11:00 am NONE,PCP [Primary Care Provider] - Prescriptions: HYDROcodone/Acet 5/325 mg [[place] 5-325 mg] 1 tab PO Q6HR PRN 3 Days #12 tablet PRN Reason: Moderate Pain ___ (1) Compression fracture of L3 lumbar vertebra Qualifiers: Encounter type: initial encounter Fracture type: closed Qualified Code(s): S32.030A - Wedge compression fracture of third lumbar vertebra, initial encounter for closed fracture
== END 2018-05-23 11:01 | DRG 552 ==
LOC: EMEROOARM 20:36 → 3NENU 20:36 → SUATTDRO 22:05 → 3NENU 23:21 → SUATTDRO 05-20 08:18
PROVIDERS: ADMIT Family Medicine; ATTEND Hospitalist